=== PATIENT | male | born 1985 | race Caucasian/White ===

== ENCOUNTER 2022-08-29 16:36 | Emergency (ER) | payer BC, SELFPAY ==
[2022-08-29 16:50] VITALS: BP 114/71; PULSE 59; RESP 20; TEMP 36.6; O2SAT 100
--- NOTE | 2022-08-29 17:53 | ED.GENADULT ---
HPI - General Adult General Chief complaint: Dizziness Stated complaint: fell and hit back of head Source: patient Mode of arrival: ambulatory Limitations: no limitations History of Present Illness HPI narrative: Patient presents for evaluation of head injury that occurred approximately 1615 today. He was referring a hockey game when he fell backwards and hit his head against the ice. No loss of consciousness. Not on blood thinners. No vomiting since the episode. Denies headache. States that he had some lightheadedness after hitting his head which has persisted. Denies confusion or problems with speech. Denies any other symptoms whatsoever. Related Data Home Medications Medication Instructions Recorded Confirmed No Home Medications 08/29/22 08/29/22 Allergies Allergy/AdvReac Type Severity Reaction Status Date / Time No Known Allergies Allergy Verified 08/29/22 16:52 Review of Systems Review of Systems: CONSTITUTIONAL: Denies fever, chills, or sweats. EYES: Denies visual changes, redness, or discharge. ENT: Denies rhinorrhea, congestion, sore throat, or otalgia. CARDIOVASCULAR: Denies chest pain, palpitations, or edema. RESPIRATORY: Denies cough or dyspnea. GASTROINTESTINAL: Denies abdominal pain, nausea, vomiting, or diarrhea. GENITOURINARY: Denies dysuria or hematuria. SKIN: Denies rash or itching. MUSCULOSKELETAL: Denies back pain, joint pain, or myalgia. NEUROLOGIC: Reports lightheadedness. Denies headache, numbness, dizziness, or weakness. PSYCHIATRIC: Denies anxiety or depression. PMFSH Past Medical History Medical History No pertinent past medical history Surgical History Surgical History No pertinent past surgical history Family History Family History Father Family history non-contributory Social History Social History Smoking status: Never smoker Substance use: never Gender identity (if verbalized by the patient): Male Spiritual care concerns: No Exam Narrative: GENERAL: Well-appearing, well-nourished, and in no acute distress. HEAD: Normocephalic, atraumatic. No skull depression noted EYES: PERRLA and EOMI. ENT: Nares clear, no rhinorrhea or epistaxis. Mucous membranes moist. Oropharynx without tonsillar hypertrophy exudate or other lesions. Bilateral TMs pearly de paz nonbulging NECK: Supple. No adenopathy or masses. No carotid bruits or JVD. No posterior neck tenderness CHEST: Clear to auscultation. No respiratory distress. No wheezes rales or rhonchi HEART: Regular rate and rhythm. No murmur heard. Normal peripheral pulses. ABDOMEN: Soft, nontender, nondistended, normal active bowel sounds. EXTREMITIES: Normal range of motion. No edema. SKIN: Warm, dry, no rash. NEURO: GCS 15. Able to perform rapid alternating movements without difficulty. Normal [id number] exam. Comprehensive neurological exam intact. No focal deficits. Alert and oriented x3. PSYCH: Normal mood and affect. Course Course Emergency Course: This is a 37-year-old male who presented for evaluation of lightheadedness after head injury that occurred this afternoon. He has no criteria warranting neuro imaging. He has no neck tenderness suggesting cervical spinal injury. His exam is consistent with contusion and concussion. Advised on red flag symptoms for which she should monitor. Tylenol for pain at home. He lives with his father who can monitor his status. Advised to go to the emergency department for vomiting, confusion, change in level of consciousness. Patient and father in agreement with plan of care. Level of Care: Express Care Visit Vital Signs Vital signs: Vital Signs Temperature 36.6 C 08/29/22 16:50 Pulse Rate 59 L 08/29/22 16:50 Respir
== END 2022-08-29 17:54 | disposition home or self-care (01) ==
PROVIDERS: Emergency Provider Nurse Practitioner
DX: S00.93XA Contusion of unspecified part of head, initial encounter (principal); W19.XXXA Unspecified fall, initial encounter; S06.0X0A Concussion without loss of consciousness, initial encounter
CPT/HCPCS: 99212; G0463